=== PATIENT | male | born 1965 | race Caucasian/White ===

== ENCOUNTER 2021-06-02 18:07 | Observation (INO) ==
[2021-06-02] MEDS ORDERED: SODIUM CHLORIDE 0.9% 1000ML 1,000 ML IV SCH (18:30)
[2021-06-02 18:36] LABS: Basophils # (auto) 0.03 K/uL (0-0.2); Basophils % (auto) 0.2 %; Eosinophils # (auto) 0.23 K/uL (0-0.5); Eosinophils % (auto) 1.7 %; Hematocrit (blood only) 41.3 % (42-52); Hemoglobin 14.3 g/dL (14.0-18.0); Immature Granulocytes # (auto) 0.03 K/uL (0.00-0.02); Immature Granulocytes % (auto) 0.2 %; Lymphocytes # (auto) 1.33 K/uL (1.2-3.4); Lymphocytes % (auto) 9.8 %; Mean Corpuscular Hemoglobin 32.7 pg (25-34); Mean Corpuscular Hgb Conc 34.6 g/dL (32-36); Mean Corpuscular Volume 94.5 fL (80-100); Mean Platelet Volume 10.2 fL (7.4-10.4); Monocytes % (auto) 5.9 %; Neutrophils % (auto) 82.2 %; Platelet Count 197 K/uL (130-400); RDW Coefficient of Variation 13.3 % (11.5-14.5); RDW Standard Deviation 45.8 fL (36.4-46.3); Red Blood Count 4.37 M/uL (4.7-6.1); White Blood Count 13.62 K/uL (4.8-10.8)
[2021-06-02 18:44] LABS: D Dimer 330 ug/L FEU (0-500)
[2021-06-02 18:53] LABS: Alanine Aminotransferase 53 U/L (12-78); Albumin Level 3.7 gm/dl (3.4-5.0); Aspartate Aminotransferase 48 U/L (15-37); BUN Creatinine Ratio 19.2 (10-20); Blood Urea Nitrogen 17 mg/dl (7-18); Calcium 8.8 mg/dl (8.5-10.1); Carbon Dioxide 20 mmol/L (21-32); Chloride 106 mmol/L (98-107); Creatinine Clr Calc Pharmacy 106.6 ml/min; Est GFR (African American) 109.6 ml/min; Est GFR (Non-African American) 94.5 ml/min; Glucose 147 mg/dl (70-99); Magnesium 2.1 mg/dl (1.8-2.4); Sodium 137 mmol/L (136-145)
[2021-06-02 19:04] LABS: Alkaline Phosphatase 47 U/L (45-117); Bilirubin,Total 1.4 mg/dl (0.2-1); Globulin 3.7 gm/dl (2.5-4.0); Total Protein 7.4 gm/dl (6.4-8.2); Troponin I < 0.015 ng/ml (0-0.045)
--- NOTE | 2021-06-02 20:05 | Emergency Department Note ---
Impression & Plan Syncope and collapse, Hypokalemia, Abnormal ECG ED Provider Note INFORMANT: Patient ED PROVIDER(S): Irving Herring MD CHIEF COMPLAINT: Syncope PLAN: Disposition: Admitted Condition: Good Outpatient prescription management: none Referral: None MEDICAL DECISION MAKING: Patient presented because of a syncopal episode. He was placed on the monitor and an ECG was performed. He had anterolateral T wave inversions but no chest pain. His CBC was mildly elevated and he had a slight low potassium level. He was given oral potassium. The patient's troponin was negative. The patient's other labs were unremarkable. The patient was given aspirin orally. An old ECG was obtained and it showed that the anterior lateral T wave inversions are new when compared to prior. In light of his episode and abnormal ECG further management in the hospital is appropriate. I discussed this with the patient and significant other at length. After answering her questions and discussing the findings they agreed. [facility] Patient was evaluated in the ER for further management. Triage Nursing notes reviewed and agree them. Vital Signs: reviewed and remarkable for no significant abnormalities Differential diagnosis: Vasovagal event, dehydration, infection, hypoglycemia, electrolyte abnormalities, cardiac sources, intracerebral event, pulmonary embolism, seizure, toxicologic, neurologic, as well as other pathologies. Diagnostics interpreted by me: ECG: Twelve-lead ECG reveals a normal sinus rhythm at 86 bpm. Anterolateral T wave inversions are present. No ST elevation. No PACs or PVCs. No prior for comparison. Cardiac Monitoring: Cardiac monitoring ordered by me: The patient was placed on continuous cardiac monitoring and observed. It revealed a normal sinus rhythm at 95 beats per minute without ectopy or evidence of dysrhythmia. HPI: The patient is a 55 year old male who presents to the Emergency Room with complaints of syncope. This started just prior to arrival and occurred while at the local [employer] The patient recently traveled home from [place]. He works there. He went to the fair and was there for about 30 minutes. It was hot. He noted feeling dizzy, lightheaded and became nauseated. He passed out. He did not suffer any injury. He was seen by EMS and was transferred to the hospital. He was given Zofran prehospital for the nausea and does feel better. Pt denies headache, fevers, chills, diaphoresis, visual changes, neck pain, chest pain, breathing difficulties, vomiting, abdominal pain, back pain, melena, h ematochezia, urinary symptoms, numbness, weakness, lymphadenopathy, rash, or other complaints. ROS: See above HPI for pertinent positives & negatives. A total of 10 systems reviewed and were otherwise negative. PAST MEDICAL HISTORY:See Below , high blood pressure PAST SURGICAL HISTORY:See Below, FAMILY HISTORY:See Below SOCIAL HISTORY:See Below, employed HOME MEDICATIONS:See Below ALLERGIES:See Below VITALS:See Below PHYSICAL EXAMINATION: GENERAL: Awake, alert, well-appearing, in no distress HENT: Normocephalic, atraumatic. Oropharynx unremarkable. EYES: Normal conjunctiva. Sclera non-icteric. NECK: Inspection normal. Non-tender. Supple. No nuchal rigidity. FROM. No masses. RESPIRATORY: Clear to auscultation. No wheezes. No rales. Normal respiratory effort. CARDIAC: Normal rate. Normal rhythm. No murmurs. No rubs. Extremities warm and well perfused. Pulses equal. No JVD. GI: Soft, non-distended. No tenderness to palpation. No rebound or guarding. No masses. RECTAL: Deferred. MUSCULOSKELETAL: Atraumatic. Chest examination reveals no tenderness. The back is symmetrical on inspection without obvious abnormality. There is no CVA te nderness to palpation. No joint edema. LOWER EXTREMITIES: Calves are equal size bilaterally and non-tender. No edema. No discoloration. NEURO: Normal sensorium. No sensory or motor deficits noted. SKIN: No rash or jaundice noted. Irving Herring MD Past Med/Surg History Social History Smoking Status: Never smoker Feels Safe at Home: Yes Allergies Allergies Allergy/AdvReac Type Severity Reaction Status Date / Time No Known Allergies Allergy Unverified 06/02/21 20:16 Home Meds Home Medications Medication Instructions Recorded Confirmed cholecalciferol (vitamin D3) 1,250 1,250 mcg PO .EVERY OTHER WEEK 06/02/21 06/02/21 mcg (50,000 unit) capsule lisinopril 20 1 tab PO DAILY 06/02/21 06/02/21 mg-hydrochlorothiazide 25 mg tablet Results & Data (ED) Vital Signs Vital Signs - 24 hr 06/02/21 18:13 06/02/21 18:06/02/21 18:22 Temperature 36.8 C Temperature Source Oral Pulse Rate - Lying Pulse Rate - Sitting Pulse Rate - Standing Pulse Rate 95 H Pulse Rate [Radial] Pulse Rhythm Regular Pulse Strength Normal Respiratory Rate 18 Respiratory Effort / Characteristics Non-Labored Respiratory Depth Normal Respiratory Pattern Regular Blood Pressure - Lying Blood Pressure - Sitting Blood Pressure- Standing Blood Pressure 130/93 Blood Pressure Mean 105 Blood Pressure Position Lying Pulse Oximetry 95 Oxygen Delivery Method Room Air Room Air Room Air Sepsis Recent Fever Within 48 Hours No Sepsis New/Unexplained Change in Mental Status No Sepsis Action Taken by Nursing No Action Required 06/02/21 20:05 06/02/21 21:12 Temperature Temperature Source Pulse Rate - Lying 86 Pulse Rate - Sitting 89 Pulse Rate - Standing 94 H Pulse Rate Pulse Rate [Radial] 92 H Pulse Rhythm Pulse Strength Respiratory Rate 16 Respiratory Effort / Characteristics Respiratory Depth Respiratory Pattern Blood Pressure - Lying 128/63 Blood Pressure - Sitting 132/97 Blood Pressure- Standing 136/94 Blood Pressure Blood Pressure Mean Blood Pressure Position Pulse Oximetry 95 Oxygen Delivery Method Room Air Sepsis Recent Fever Within 48 Hours Sepsis New/Unexplained Change in Mental Status Sepsis Action Taken by Nursing Laboratory Data Result diagrams: 06/02/21 18:22 06/02/21 18:22 Lab Results 06/02/21 06/02/21 06/02/21 Range/Units 18:22 18:22 18:22 WBC 13.62 H (4.8-10.8) K/uL RBC 4.37 L (4.7-6.1) M/uL Hgb 14.3 (14.0-18.0) g/dL Hct 41.3 L (42-52) % MCV 94.5 (80-100) fL MCH 32.7 (25-34) pg MCHC 34.6 (32-36) g/dL RDW Std Deviation 45.8 (36.4-46.3) fL RDW Coeff of Vicente 13.3 (11.5-14.5) % Plt Count 197 (130-400) K/uL MPV 10.2 (7.4-10.4) fL Immature Gran % (Auto) 0.2 % Neut % (Auto) 82.2 % Lymph % (Auto) 9.8 % [place] % (Auto) 5.9 % Eos % (Auto) 1.7 % Baso % (Auto) 0.2 % Neut # (Auto) 11.20 H (1.4-6.5) K/uL Lymph # (Auto) 1.33 (1.2-3.4) K/uL [place] # (Auto) 0.80 H (0.11-0.59) K/uL Eos # (Auto) 0.23 (0-0.5) K/uL Baso # (Auto) 0.03 (0-0.2) K/uL Immature Gran # (Auto) 0.03 H (0.00-0.02) K/uL D-Dimer 330 (0-500) ug/L FEU Sodium 137 (136-145) mmol/L Potassium 3.0 L (3.5-5.1) mmol/L Chloride 106 (98-107) mmol/L Carbon Dioxide 20 L (21-32) mmol/L Anion Gap 12.0 H (3-11) BUN 17 (7-18) mg/dl Creatinine 0.91 (0.6-1.4) mg/dl Est Cr Clr Drug Dosing 106.6 ml/min Est GFR ( Amer) 109.6 ml/min Est GFR (Non-Af Amer) 94.5 ml/min BUN/Creatinine Ratio 19.2 (10-20) Glucose 147 H (70-99) mg/dl Calcium 8.8 (8.5-10.1) mg/dl Magnesium 2.1 (1.8-2.4) mg/dl Total Bilirubin 1.4 H (0.2-1) mg/dl AST 48 H (15-37) U/L ALT 53 (12-78) U/L Alkaline Phosphatase 47 (45-117) U/L Troponin I < 0.015 (0-0.045) ng/ml Total Protein 7.4 (6.4-8.2) gm/dl Albumin 3.7 (3.4-5.0) gm/dl Globulin 3.7 (2.5-4.0) gm/dl Albumin/Globulin Ratio 1.0 (0.9-2) TSH 3.950 (0.300-4.500) uIu/ml COVID-19 Eval Order SARS-CoV-2 (PCR) (Negative) 06/02/21 06/02/21 Range/Units 21:10 21:10 WBC (4.8-10.8) K/uL RBC (4.7-6.1) M/uL Hgb (14.0-18.0) g/dL Hct (42-52) % MCV (80-100) fL MCH (25-34) pg MCHC (32-36) g/dL RDW Std Deviation (36.4-46.3) fL RDW Coeff of Vicente (11.5-14.5) % Plt Count (130-400) K/uL MPV (7.4-10.4) fL Immature Gran % (Auto) % Neut % (Auto) % Lymph % (Auto) % [place] % (Auto) % Eos % (Auto) % Baso % (Auto) % Neut # (Auto) (1.4-6.5) K/uL Lymph # (Auto) (1.2-3.4) K/uL [place] # (Auto) (0.11-0.59) K/uL Eos # (Auto) (0-0.5) K/uL Baso # (Auto) (0-0.2) K/uL Immature Gran # (Auto) (0.00-0.02) K/uL D-Dimer (0-500) ug/L FEU Sodium (136-145) mmol/L Potassium (3.5-5.1) mmol/L Chloride (98-107) mmol/L Carbon Dioxide (21-32) mmol/L Anion Gap (3-11) BUN (7-18) mg/dl Creatinine (0.6-1.4) mg/dl Est Cr Clr Drug Dosing ml/min Est GFR ( Amer) ml/min Est GFR (Non-Af Amer) ml/min BUN/Creatinine Ratio (10-20) Glucose (70-99) mg/dl Calcium (8.5-10.1) mg/dl Magnesium (1.8-2.4) mg/dl Total Bilirubin (0.2-1) mg/dl AST (15-37) U/L ALT (12-78) U/L Alkaline Phosphatase (45-117) U/L Troponin I (0-0.045) ng/ml Total Protein (6.4-8.2) gm/dl Albumin (3.4-5.0) gm/dl Globulin (2.5-4.0) gm/dl Albumin/Globulin Ratio (0.9-2) TSH (0.300-4.500) uIu/ml COVID-19 Eval Order Covid19 at [facility] SARS-CoV-2 (PCR) NEGATIVE (Negative) Administered Medications Potassium Chloride 20 meq/ (Lactated Ringer's) 1,010 mls @ 100 mls/hr IV .Q10H6M STA Stop: 06/03/21 07:21 Last Admin: 06/02/21 21:46 Dose: 100 mls/hr Documented by: [id number] Discontinued Medications Aspirin (Aspirin Chew 324 Mg) 324 mg PO NOW STA Stop: 06/02/21 21:13 Last Admin: 06/02/21 21:46 Dose: 324 mg Documented by: [id number] Sodium Chloride (Nss 1000ml) 1,000 mls @ 999 mls/hr IV .Q1H1M HARMAN Stop: 06/02/21 19:30 Last Infusion: 06/02/21 19:24 Dose: 0 mls/hr Documented by: [id number] Admin: 06/02/21 18:24 Dose: 999 mls/hr Documented by: [id number] Potassium Chloride (Potassium Chloride Crtab 20 Meq Tabcr) 40 meq PO NOW STA Stop: 06/02/21 20:54 Last Admin: 06/02/21 21:09 Dose: 40 meq Documented by: [id number] Discharge Plan Visit Data Chief Complaint: Syncope Stated Complaint: syncope ED Provider: Irving Herring Discharge Problem: Syncope and collapse, Hypokalemia, Abnormal ECG Patient Disposition: Admitted As Inpatient Forms Stand Alone Forms: [facility] Prescriptions Prescriptions: No Action lisinopril-hydrochlorothiazide 20-25 mg tablet 1 tab PO DAILY RF: 0 cholecalciferol (vitamin D3) 1,250 mcg (50,000 unit) capsule 1,250 mcg PO .EVERY OTHER WEEK RF: 0 Referrals Referrals: PCP,NO [Primary Care Provider] -
[2021-06-02] MEDS ORDERED: POTASSIUM CHLORIDE CRTAB 20 MEQ TABCR PO STA ×2 (20:53→22:39)
[2021-06-02] MEDS ORDERED: ASPIRIN CHEW 324 MG PO STA (21:12)
[2021-06-02] MEDS ORDERED: POTASSIUM CHLORIDE 20 MEQ in LACTATED RINGER'S 1,000 ML IV STA (21:16)
--- NOTE | 2021-06-02 22:05 | History & Physical Report ---
Date of Service June 02, 2021 Assessment & Plan (1) Syncope and collapse: Plan: Possibly from heat exhaustion, orthostasis, mild clinical dehydration (note of ketonuria on UA) Rule out cardiac dysfunction HTN stable Hypokalemia secondary to home diuretic Rx Hyperglycemia rule out DM OBS Medical telemetry Check orthostatic vitals, TTE for syncope work-up Monitor creatinine response to IVF, hold home diuretic for now Replace potassium Check hemoglobin A1c DVT prophylaxis. Lovenox subcu Full code Text document was generated using [employer] voice recognition software. It may contain grammatical or spelling errors. Kindly contact undersigned for clarification of any documentation item in question. History of Present Illness Chief Complaint: Syncope Primary Care Provider: Dr. Clarita Espinoza, [facility] History obtained from patient and records. Medical history significant for hypertension. Patient is a resident of [facility] who attended the local [employer] in [facility] today after returning from work related travel from [place]. Patient recalls feeling very hot at the [employer] [facility]. Subsequent dizziness, lightheadedness and nausea. Syncopal event for about less than a minute witnessed by . No witnessed C seizures. Patient denies headache, chest pain, S OB. No prior syncopal events as per patient's recollection. Patient brought to the ER for evaluation. Patient currently feeling much better. 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 Allergies Allergy/AdvReac Type Severity Reaction Status Date / Time No Known Allergies Allergy Unverified 06/02/21 20:16 Home Medications Medication Instructions Recorded Confirmed Type cholecalciferol (vitamin D3) 1,250 1,250 mcg PO .EVERY OTHER WEEK 06/02/21 06/02/21 History mcg (50,000 unit) capsule lisinopril 20 1 tab PO DAILY 06/02/21 06/02/21 History mg-hydrochlorothiazide 25 mg tablet Past Med/Surg History Social History Smoking Status: Never smoker Do You Dip or Chew Tobacco: No; Hx Alcohol Use: Yes Alcohol type: wine Hx Substance Use: No Preferred Language: Mozambican Communication Ability: Effective Auto Clutch Rebuilder Required: No Beliefs That Will Affect Care: None Current Living Situation: Spouse Current Living Situation Comment: Lives at home w/ spouse Other Information That Helps Us Care for You: No Feels Safe at Home: Yes Safety Concerns: Feels Safe At This Time Assistive Devices: Glasses Review of Systems Review of Systems: As per HPI, all 10 systems reviewed, all other ROS negative Physical Exam Physical Exam: GENERAL: Comfortable, pleasant, no respiratory distress SKIN: Normal color, warm HEENT: Bespectacled, [place] palpebral conjunctivae, no ptosis, dry buccal mucosa NECK : Supple, no tenderness CHEST : CTA, no tenderness HEART : RRR, no obvious murmurs ABDOMEN: Some distention, nontender EXTREMITIES : No LE swelling/tenderness, no other conspicuous deformities noted NEUROLOGIC : Coherent, no facial asymmetry, no other gross focality Results & Data Results & Data ([facility]) Vital Signs (Past 12 Hours) Vital Signs Temp Pulse Pulse Resp BP Pulse Ox 06/02/21 21:12 92 H 16 95 06/02/21 18:13 36.8 C 95 H 18 130/93 95 Laboratory Results Laboratory Results WBC 13.62 K/uL (4.8-10.8) H 06/02/21 18:22 RBC 4.37 M/uL (4.7-6.1) L 06/02/21 18:22 Hgb 14.3 g/dL (14.0-18.0) 06/02/21 18:22 Hct 41.3 % (42-52) L 06/02/21 18:22 MCV 94.5 fL (80-100) 06/02/21 18:22 MCH 32.7 pg (25-34) 06/02/21 18:22 MCHC 34.6 g/dL (32-36) 06/02/21 18:22 RDW Std Deviation 45.8 fL (36.4-46.3) 06/02/21 18:22 RDW Coeff of Vicente 13.3 % (11.5-14.5) 06/02/21 18:22 Plt Count 197 K/uL (130-400) 06/02/21 18:22 MPV 10.2 fL (7.4-10.4) 06/02/21 18:22 Immature Gran % (Auto) 0.2 % 06/02/21 18:22 Neut % (Auto) 82.2 % 06/02/21 18:22 Lymph % (Auto) 9.8 % 06/02/21 18:22 [place] % (Auto) 5.9 % 06/02/21 18:22 Eos % (Auto) 1.7 % 06/02/21 18:22 Baso % (Auto) 0.2 % 06/02/21 18:22 Neut # (Auto) 11.20 K/uL (1.4-6.5) H 06/02/21 18:22 Lymph # (Auto) 1.33 K/uL (1.2-3.4) 06/02/21 18:22 Bowie # (Auto) 0.80 K/uL (0.11-0.59) H 06/02/21 18:22 Eos # (Auto) 0.23 K/uL (0-0.5) 06/02/21 18:22 Baso # (Auto) 0.03 K/uL (0-0.2) 06/02/21 18: Immature Gran # (Auto) 0.03 K/uL (0.00-0.02) H 06/02/21 18:22 D-Dimer 330 ug/L FEU (0-500) 06/02/21 18:22 Sodium 137 mmol/L (136-145) 06/02/21 18:22 Potassium 3.0 mmol/L (3.5-5.1) L 06/02/21 18:22 Chloride 106 mmol/L (98-107) 06/02/21 18:22 Carbon Dioxide 20 mmol/L (21-32) L 06/02/21 18:22 Anion Gap 12.0 (3-11) H 06/02/21 18:22 BUN 17 mg/dl (7-18) 06/02/21 18:22 Creatinine 0.91 mg/dl (0.6-1.4) 06/02/21 18:22 Est Cr Clr Drug Dosing 106.6 ml/min 06/02/21 18:22 Est GFR ( Amer) 109.6 ml/min 06/02/21 18:22 Est GFR (Non-Af Amer) 94.5 ml/min 06/02/21 18:22 BUN/Creatinine Ratio 19.2 (10-20) 06/02/21 18:22 Glucose 147 mg/dl (70-99) H 06/02/21 18:22 Calcium 8.8 mg/dl (8.5-10.1) 06/02/21 18:22 Magnesium 2.1 mg/dl (1.8-2.4) 06/02/21 18:22 Total Bilirubin 1.4 mg/dl (0.2-1) H 06/02/21 18:22 AST 48 U/L (15-37) H 06/02/21 18:22 ALT 53 U/L (12-78) 06/02/21 18:22 Alkaline Phosphatase 47 U/L (45-117) 06/02/21 18:22 Troponin I < 0.015 ng/ml (0-0.045) 06/02/21 18:22 Total Protein 7.4 gm/dl (6.4-8.2) 06/02/21 18:22 Albumin 3.7 gm/dl (3.4-5.0) 06/02/21 18:22 Globulin 3.7 gm/dl (2.5-4.0) 06/02/21 18:22 Albumin/Globulin Ratio 1.0 (0.9-2) 06/02/21 18:22 TSH 3.950 uIu/ml (0.300-4.500) 06/02/21 18:22 COVID-19 Eval Order Covid19 at [facility] 06/02/21 21:10 Diagnostic Findings EKG as per my interpretation rate 85, NSR, normal axis, U waves over the anterolateral leads
[2021-06-03] MEDS ORDERED: PROMETHAZINE HCL 12.5 MG in SODIUM CHLORIDE 0.9% 50 ML IV PRN (00:51)
[2021-06-03] MEDS ORDERED: traMADol HCL 50 MG TABLET PO PRN (00:51)
[2021-06-03] MEDS ORDERED: ACETAMINOPHEN 325 MG TAB PO PRN (00:51)
[2021-06-03 02:02] LABS: Appearance Urine Clear (Clear); Bilirubin Urine Negative (Negative); Blood Urine Negative (Negative); Color Urine Yellow; Glucose Urine UA Trace (Negative); Ketones Urine 1+ (Negative); Leukocyte Esterase Urine Negative (Negative); Nitrite Urine Negative (Negative); Protein Urine Negative (Negative); Specific Gravity Urine 1.028 (1.000-1.030); Urobilinogen Urine Negative (Negative); pH Urine 5.5 (4.5-7.5)
[2021-06-03 05:43] LABS: Basophils # (auto) 0.03 K/uL (0-0.2); Basophils % (auto) 0.3 %; Eosinophils # (auto) 0.35 K/uL (0-0.5); Hematocrit (blood only) 38.4 % (42-52); Hemoglobin 12.8 g/dL (14.0-18.0); Immature Granulocytes # (auto) 0.02 K/uL (0.00-0.02); Immature Granulocytes % (auto) 0.2 %; Lymphocytes # (auto) 1.31 K/uL (1.2-3.4); Lymphocytes % (auto) 15.1 %; Mean Corpuscular Hemoglobin 32.4 pg (25-34); Mean Corpuscular Hgb Conc 33.3 g/dL (32-36); Mean Corpuscular Volume 97.2 fL (80-100); Mean Platelet Volume 9.8 fL (7.4-10.4); Monocytes # (auto) 0.56 K/uL (0.11-0.59); Monocytes % (auto) 6.5 %; Neutrophils # (auto) 6.41 K/uL (1.4-6.5); Neutrophils % (auto) 73.9 %; Platelet Count 176 K/uL (130-400); RDW Coefficient of Variation 13.6 % (11.5-14.5); RDW Standard Deviation 48.3 fL (36.4-46.3); Red Blood Count 3.95 M/uL (4.7-6.1); White Blood Count 8.68 K/uL (4.8-10.8)
[2021-06-03 06:14] LABS: Calcium 7.9 mg/dl (8.5-10.1); Est GFR (African American) 118.4 ml/min; Est GFR (Non-African American) 102.2 ml/min; Potassium 3.9 mmol/L (3.5-5.1)
[2021-06-03 07:39] LABS: Estimated Average Glucose 114 mg/dl; Hemoglobin A1C 5.6 % (4.5-5.6)
[2021-06-03] MEDS ORDERED: lisinopril 20 MG TAB PO SCH (09:00)
[2021-06-03] MEDS ORDERED: ENOXAPARIN INJ 40 MG/0.4 ML SYR SQ SCH (09:00)
--- NOTE | 2021-06-03 12:29 | Hospitalist Progress Note ---
Date of Service June 03, 2021 Assessment & Plan (1) Syncope and collapse: Plan: Possibly from heat exhaustion, orthostasis, mild clinical dehydration (note of ketonuria on UA) Rule out cardiac dysfunction-no arrhythmias noted in monitor EKG normal and troponin negative No cardiac symptoms Has been ambulating in the hallway without any dizziness and/or abnormalities Received intravenous fluid and denies any more dizziness Will be discharged home this afternoon HTN stable Hypokalemia secondary to home diuretic Rx Hyperglycemia rule out DM-hemoglobin A1c is 5.6. Nondiabetic Has had mildly increased bilirubin without any increasing transaminases Likely secondary to a stress White count improved to normality Will be discharged home this afternoon DVT prophylaxis. Lovenox subcu Full code Admission and Anticipated Discharge Date Admission Date: June 02, 2021 Subjective 06/03/2021 The patient was seen and examined in medical telemetry unit He has been feeling much better and denies any symptoms whatsoever He has been moving around in the hallway without any symptoms Review of Systems Review of Systems: All systems reviewed and are unremarkable except as noted below Physical Exam Physical Exam: Lying in bed comfortably Constitutional: well developed, well nourished and average body habitus; not ill appearing Eyes: PERRL, conjunctivae normal, anicteric sclerae ENMT: external ear and nose normal, oropharynx normal Neck: trachea midline, no thyromegaly Respiratory: normal respiratory effort, lungs clear to auscultation Cardiovascular: Rate/Rhythm: regular rate and regular rhythm; not tachycardic Heart Sounds: normal S1 and normal S2; no murmur Gastrointestinal (Abdomen): normal bowel sounds, soft, nontender, no hepatosplenomegaly Musculoskeletal: No acute arthritis in any joint Neurologic: Alert, awake and oriented x3. No focal sensory and motor deficit appreciated Psychiatric: A+Ox3, euthymic affect Results & Data Results & Data ([facility]) Vital Signs (Past 12 Hours) Vital Signs Temp Pulse Pulse Pulse Resp BP BP 06/03/21 11:04 36.8 C 79 18 121/79 06/03/21 08:17 36.6 C 76 18 130/82 06/03/21 04:51 36.6 C 80 18 113/72 06/03/21 00:51 36.8 C 77 16 129/80 06/03/21 00:50 36.8 C 77 16 129/80 06/03/21 00:49 78 08/27/21 00:23 77 16 112/81 Pulse Ox Pulse Ox 06/03/21 11:04 95 06/03/21 08:17 96 06/03/21 04:51 97 06/03/21 00:51 94 94 06/03/21 00:50 94 06/03/21 00:49 06/03/21 00:23 95 Laboratory Results Short CBC 06/02/21 06/03/21 Range/Units 18:22 05:27 WBC 13.62 H 8.68 (4.8-10.8) K/uL Hgb 14.3 12.8 L (14.0-18.0) g/dL Hct 41.3 L 38.4 L (42-52) % Plt Count 197 176 (130-400) K/uL BMP 06/02/21 06/03/21 18:22 05:27 Sodium 137 139 Potassium 3.0 L 3.9 D Chloride 106 110 H Carbon Dioxide 20 L 24 BUN 17 13 Creatinine 0.91 0.77 Glucose 147 H 104 H Calcium 8.8 7.9 L Cardiac Enzymes 06/02/21 Range/Units 18:22 Troponin I < 0.015 (0-0.045) ng/ml Liver Function 06/02/21 Range/Units 18:22 Total Bilirubin 1.4 H (0.2-1) mg/dl AST 48 H (15-37) U/L ALT 53 (12-78) U/L Alkaline Phosphatase 47 (45-117) U/L Albumin 3.7 (3.4-5.0) gm/dl Urine 06/03/21 Range/Units 01:55 Urine Color Yellow Urine Appearance Clear (Clear) Urine pH 5.5 (4.5-7.5) Ur Specific [place] 1.028 (1.000-1.030) Urine Protein Negative (Negative) Urine Glucose (UA) Trace H (Negative) Medications Administered Current Inpatient Medications Acetaminophen (Acetaminophen 325 Mg Tab) 650 mg PO Q4H PRN PRN Reason: Pain or Fever Stop: 07/03/21 00:50 Enoxaparin Sodium (Enoxaparin Inj 40 Mg/0.4 Ml Syr) 40 mg SQ QAM HARMAN Stop: 07/03/21 08:59 Last Admin: 06/03/21 08:51 Dose: Not Given Documented by: Promethazine HCl 12.5 mg/ (Sodium Chloride) 50.5 mls @ 202 mls/hr IV Q6H PRN PRN Reason: Nausea And Vomiting Stop: 07/03/21 00:50 Lisinopril (Lisinopril 20 Mg Tab) 20 mg PO QAM [facility] Stop: 07/03/21 08:59 Last Admin: 06/03/21 08:50 Dose: 20 mg Documented by: Tramadol HCl (Tramadol Hcl 50 Mg Tablet) 25 mg PO Q4H PRN PRN Reason: Pain Stop: 07/03/21 00:50
--- NOTE | 2021-06-04 07:07 | Electrocardiogram Report ---
Test Reason : Blood Pressure : / mmHG Vent. Rate : 086 BPM Atrial Rate : 086 BPM P-R Int : 168 ms QRS Dur : 086 ms QT Int : 356 ms P-R-T Axes : 062 039 077 degrees QTc Int : 426 ms Normal sinus rhythm T wave abnormality, consider anterolateral ischemia Abnormal ECG No previous ECGs available Confirmed by Kye Crain ([id number]) on 06/04/2021 7:07:01 AM Referred By: REFERRED SELF Confirmed By:Kye Crain
== END 2021-06-03 14:28 | disposition home or self-care (01) ==
LOC: 2N 18:07 → ED 18:07 → SUATTDRO 22:36 → 2N 23:54
DX: E87.6 Hypokalemia; R55 Syncope and collapse; I10 Essential (primary) hypertension; R73.9 Hyperglycemia, unspecified; E80.7 Disorder of bilirubin metabolism, unspecified